=== PATIENT | female | born 1975 | race Caucasian/White ===

== ENCOUNTER 2018-03-06 01:39 | Emergency (ER) | payer OTHER ==
[~2018-03-06] VITALS: Ht 152.4 cm; Wt 86.4 kg
[~2018-03-06 01:39] MED LIST: ADVIL LIQUI-GE200 MG PO; FLEXERIL 1010 MG/TAB PO; NEURONTIN300 M1 PO; ULTRAM50 M1 PO
[2018-03-06] MEDS ORDERED: LOSARTAN POTASS25 MG PO (01:56)
[2018-03-06] MEDS ORDERED: METFORMIN HYD1000 MG PO (01:56)
[2018-03-06 02:22] LABS: EOS # 0.1 (0.04-0.40); EOS % 0.7 % (1.0-5.0); HEMATOCRIT 41.5 % (37.0-47.0); HEMOGLOBIN 14.2 g/dL (12.5-16.0); LYMPH# 2.7 (1.50-4.00); MEAN CELL VOLUME 89 fl (78-100); MEAN CORPUSCULAR HEMOGLOBIN 30 pg (27-31); MEAN CORPUSCULAR HGB CONC 34 g/dL (33-37); MEAN PLATELET VOLUME 8.9 fl (7.4-10.4); MONO # 0.7 (0.20-0.80); NEU # 7.7 (1.40-6.50); PLATELET COUNT 334 K/mm3 (130-400); RED BLOOD COUNT 4.68 M/mm3 (4.10-5.30); RED CELL DISTRIBUTION WIDTH 12.2 % (11.5-14.5); WHITE BLOOD COUNT 11.2 K/mm3 (4.8-10.8)
[2018-03-06 02:38] LABS: ALBUMIN 4.7 g/dL (3.5-5.0); CALCIUM 9.5 mg/dL (8.4-10.2); POTASSIUM 3.7 mmol/L (3.6-5.0); TOTAL BILIRUBIN 0.5 mg/dL (0.2-1.3)
[2018-03-06 02:38] LABS: URINE APPEARANCE HAZY; URINE BILIRUBIN NEGATIVE (NEGATIVE); URINE BLOOD NEGATIVE (NEGATIVE); URINE COLOR YELLOW; URINE GLUCOSE NEGATIVE (NEGATIVE); URINE KETONE NEGATIVE (NEGATIVE); URINE LEUKOCYTE ESTERASE NEGATIVE (NEGATIVE); URINE NITRATE NEGATIVE (NEGATIVE); URINE PROTEIN(semi-quant) TRACE mg/dL (NEGATIVE); URINE UROBILINOGEN NORMAL (NORMAL); URINE WBC 0-1 /hpf (0-3)
[2018-03-06] MEDS ORDERED: NORCO 325 MG-51 TA1 PO (04:34)
[2018-03-06 04:43] VITALS: BP 120/78
== END 2018-03-06 04:43 | disposition home or self-care (01) ==
LOC: ED 01:39
PROVIDERS: Nurse Practitioner
DX: M54.5 Low back pain (principal); N83.9 Noninflammatory disorder of ovary, fallopian tube and broad ligament, unspecified; E11.9 Type 2 diabetes mellitus without complications; Z79.84 Long term (current) use of oral hypoglycemic drugs; I10 Essential (primary) hypertension; Z90.710 Acquired absence of both cervix and uterus; Z90.49 Acquired absence of other specified parts of digestive tract; Z79.899 Other long term (current) drug therapy
CPT/HCPCS: J1885; J2405; J3010; J7030